=== PATIENT | female | born 1985 | race Caucasian/White ===

== ENCOUNTER 2020-09-11 12:08 | Emergency (ER) | payer BC, OTHER ==
[2020-09-11 12:12] VITALS: BP 114/76; PULSE 83; TEMP 98.2; BMI 31.6
== END 2020-09-11 12:59 | disposition home or self-care (01) ==
LOC: JERFT 12:08
DX: T19.2XXA Foreign body in vulva and vagina, initial encounter (principal)
CPT/HCPCS: 99283-25

== ENCOUNTER 2022-03-29 14:58 | Emergency (ER) | payer OTHER ==
[2022-03-29 15:18] VITALS: BP 111/75; PULSE 59; RESP 19; TEMP 97.8; BMI 32.8
[2022-03-29] MEDS ORDERED: IBUPROFEN 600 MG TABLET (FP) PO ONE ×2 (16:24→16:29)
== END 2022-03-29 17:55 | disposition home or self-care (01) ==
LOC: JERFT 14:58
DX: S92.912A Unspecified fracture of left toe(s), initial encounter for closed fracture (principal); W20.8XXA Other cause of strike by thrown, projected or falling object, initial encounter
CPT/HCPCS: 73610-TC-LT-FY; 73630-TC-LT; 99283-25